=== PATIENT | male | born 1950 | race Caucasian/White ===

== ENCOUNTER 2023-07-26 11:02 | Inpatient (IN) | payer OTHER, SELFPAY ==
[2023-07-26 08:50] VITALS: BP 144/59
[2023-07-26 09:00] VITALS: BMI 24.5
[2023-07-26 09:05] LABS: Glucose - Point of Care 82 mg/dl (70-99)
--- NOTE | 2023-07-26 09:17 | ED.GENMED ---
History of Present Illness
General
Chief Complaint: Blood Sugar Problem
Source: patient, ambulance crew and long term
Exam Limitations: none
Time Seen by Provider: 07/26/23 09:01
Nursing documentation reviewed up to this point in time: agreed with
Travel History
Have you had any contact with someone who has COVID-19?: No
Do you have any symptoms of coronavirus? Fever > 100 degrees, chills, cough, shortness of breath, sore throat, loss of taste or smell, muscle aches, or headache?: No
History of Present Illness
History of Present Illness:
72-year-old male with a past medical history of hypertension, hyperlipidemia, CAD status post CABG, CHF, pacemaker/AICD, ESRD on dialysis (M/W/ schedule, last dialysis Saturday) who presents to the emergency room from [facility] for rehab for
evaluation of hypoglycemia, transient hypoxia. Patient reports that he had a recent hip surgery at [place]; apparently also had COVID and generalized weakness and he has been in rehab since these issues. He says that his sugars have been
running high and his insulin regimen was recently adjusted. I spoke with the staff at [facility]: Apparently sugars have been quite elevated in the 300s and 400s over the past few days since coming to rehab on Saturday. His insulin regimen
initially was insulin glargine 14 units nightly and insulin lispro 6 units before meals and at bedtime. This regimen was increased to insulin glargine 16 units nightly and insulin lispro 10 units with meals and at bedtime. He is not on any oral
antihyperglycemic agents. He received this new regimen last night�she received insulin glargine 16 units at 20:30 and insulin lispro 10 units at 20:30. He says that he woke up around 3 AM and felt dizzy and weak. Apparently they checked his blood
glucose and it was low. He was given crackers and juice he says and he went back to sleep. He says that he woke up later in the morning and once again was feeling dizzy like his sugar was low and apparently when I checked his blood glucose it was
in the 50s and despite giving glucagon and oral glucose they had difficulty getting glucose above 60s. EMS called. Per EMS on arrival his sugar was 55. Was given glucagon and oral glucose by EMS with improvement. There was also report of some
transient hypoxia�history is somewhat unclear EMS says that his pulse ox was in the high 80s, the nurse at rehab said that his pulse ox was in the 60s at one point. Patient says that at no point that he feels short of breath although he was very
groggy and dizzy when his sugar was low and is not a great historian for this time period. I have present moment patient says that he feels well he has no chest pain, shortness of breath does not feel nauseated has not been feeling dizzy here. He
tells me that during his recent hospitalization his oxygen level typically rested in the low 90s.
Review of Systems
Review of Systems
All Other Systems: ROS reviewed and negative except as documented in HPI and ROS
Constitutional: Denies fever or chills
Respiratory: Denies cough or trouble breathing
Cardiac: Denies chest pain
ABD/GI: Denies abdominal pain, nausea or vomiting
: Denies flank pain
Musculoskeletal: Reports edema; Denies neck pain or back pain
Neurological: Reports dizzy; Denies headache
Phy Exam
Physical Exam
Physical Exam:
General: Awake, alert; no acute distress
Head: Normocephalic, atraumatic
Eyes: Conjunctiva normal
Throat: Airway intact, handling secretions
Neck: Trachea midline, supple without meningismus
Lungs: Faint basilar rales; pulse ox 88 to 92% on room air; normal work of breathing
Heart: Regular rate and rhythm, no murmurs, gallops, or rubs; pacemaker left chest wall
Abd: Soft, non distended, nontender
Neuro: Cranial nerves grossly intact, speech fluid
Skin: no rash
Extremities: Bilateral pitting edema +2 in the lower extremities; extremities are warm well-perfused
Scores
Heart Failure Risk
Heart Failure Risk Score: Not Applicable
Heart Score for Chest Pain Patients
STEMI patient?: Not applicable
Withdrawal Assessment of Alcohol
Withdrawal Assessment Completed?: Not applicable
Course
Orders/Labs/Results
Orders:
Orders
07/26/23 09:02
Bedside Glucose- Treatment ONCE
Dextrose 50%-Water [Dextrose 50% Syringe] 12.5 grams IV NOW STA
07/26/23 09:16
CR Chest - 2 Views Urgent
Comment:
Reason For Exam: hypoxia, LE edema
07/26/23 09:21
Complete Blood Count/With Diff Urgent
Comprehensive Metabolic Panel Urgent
NT-proBNP Urgent
07/26/23 09:48
NEPHROLOGY CONSULT Urgent
Consulting Provider: Brittany Gutiérrez
Was physician already notified: Yes
07/26/23 09:58
Electrocardiogram (*1) Urgent
Reason for Study: Shortness of Breath
EKG- Treatment ONCE
Abnormal Lab Results
07/26/23
09:21
RBC 3.00 L 10^6/uL
(4.70-6.10)
Hgb 8.3 L g/dL
(13.0-18.0)
Hct 25.6 L %
(39.0-52.0)
MCHC 32.4 L g/dL
(33.0-37.0)
RDW 19.2 H %
(11.5-14.5)
Abs Immat Gran (auto) 0.1 H 10^3/uL
(0-0.05)
Absolute Neuts (auto) 7.0 H 10^3/uL
(1.4-6.5)
Absolute Lymphs (auto) 0.4 L 10^3/uL
(1.2-3.4)
Immature Gran % 0.6 H %
(0-0.5)
Neutrophils % 81.5 H %
(42.2-75.2)
Lymphocytes % 5.0 L %
(20.5-51.1)
Sodium 134 L mmol/L
(135-145)
BUN 63 H mg/dl
(9-20)
Creatinine 5.4 H* mg/dL
(0.7-1.3)
Glucose 54 L* mg/dl
(70-99)
Calcium 7.5 L mg/dl
(8.4-10.2)
ALT 74 H U/L
(0-50)
Total Protein 5.9 L g/dl
(6.3-8.2)
Albumin 2.8 L g/dl
(3.5-5.0)
07/26/23 09:21
07/26/23 09:21
Vital Signs
Initial and Last Documented VS:
Initial Vital Signs
Temp Pulse Resp BP Pulse Ox
36.5 C 60 20 144/59 88
07/26/23 08:50 07/26/23 08:50 07/26/23 08:50 07/26/23 08:50 07/26/23 08:50
Last Documented Vital Signs
Temp Pulse Resp BP Pulse Ox
36.5 C 60 20 144/59 88
07/26/23 08:50 07/26/23 08:50 07/26/23 08:50 07/26/23 08:50 07/26/23 08:50
MDM/Problems Addressed
Differential Diagnosis Includes:
Hypoglycemia�likely related to recent increase in insulin
Hypoxia�volume overload in the setting of ESRD, due for dialysis today; differential also include pneumonia, PE somewhat less likely
MDM/Problems Addressed:
72-year-old male presents to the emergency room for evaluation of hypoglycemia after increased insulin regimen as described above. Blood sugar apparently 55 for EMS he received glucagon and oral glucose. Blood glucose 75 here he was given
additional D50 to avoid further hypoglycemia. He is currently asymptomatic. Pulse ox was apparently low at long term he says that it has always been in the low 90s recently. Saturation fluctuating 88 to 92% here. Exam as above. Plan to place
an IV and check basic lab work, BNP. Will check a chest x-ray and EKG. Will monitor blood glucose closely. Suspect some mild volume overload will likely need dialysis, unfortunately he was sent in and missed outpatient dialysis.
Initial labs reviewed: CBC shows anemia at 8.3�no prior available for comparison but suspect chronic anemia in the setting of ESRD. CMP shows creatinine of 5.4 in keeping with his known renal failure; potassium acceptable at 4.5. His glucose on
BMP was 54�this was drawn prior to receiving dextrose here. Repeat Accu-Chek after receiving call back from lab showed a glucose of __. His BNP is markedly elevated at 27,000. Chest x-ray reviewed by me shows some pulmonary vascular congestion,
also question whether he could have a left lower lobe infiltrate/pneumonia. I did discuss the case with nephrology as he is due for dialysis and I suspect there is at least some element of volume overload contributing to his hypoxia but pneumonia
would certainly account for his elevated blood glucose recently and his hypoxia as well. Will plan to admit for monitoring of his blood glucose, will treat with antibiotics, arrange for dialysis. Discussed with hospitalist for admission.
Chronic conditions affecting care:
ESRD, CHF, diabetes
Acute Exacerbation and/or Progression of Chronic Illness:
Hypoglycemia treated with glucose
Acute Exacerbation and/or Progression of Chronic Illness: DM
*Radiology
Radiology exam reviewed: preliminary read by ED provider and radiology read reviewed
*Pulse Oximetry
Patient hypoxic: no
*EKG
Interpreted by ED Provider?: Yes
Comparison EKG: no comparison EKG present
Heart Rate: 60
Rate: normal
Rhythm: av sequential
*Critical Care Note
Total Time (30-74mins, 75-104mins- exclusive of procedures): Not Applicable
Data Reviewed
Source: patient, ambulance crew, long term and long term records
Patient Management
Discussion with other providers: Hospitalist (Discussed with hospitalist) and [facility] [employer] (Discussed with nephrology)
Escalation/DeEscalation of care consider admission/obs:
Admission indicated
ED Attending Note
-
Portions of this chart may have been created with voice recognition software.� Occasional wrong word or��sound alike� substitutions may have occurred due to the inherent limitations of voice recognition software.
Discharge Plan
Departure
Admit to doctor: Deandre
Presentation/result/management discussed w/ accepting MD/DO: Hospitalist
Discharge Problem:
Hypoglycemia, Pneumonia, Volume overload
Referrals:
Angelito Parker MD [Family Provider] -
Interventions
Interventions:
*Risk Screen - Suicide Last Done: 07/26/23 08:50
*General Assessment Last Done: 07/26/23 08:50
*Neglect/Abuse Screening Last Done: 07/26/23 08:50
ED- Neurological Assessment Last Done: 07/26/23 09:12
[2023-07-26] MEDS: DEXTROSE 50% SYRINGE 12.5 GRAMS IV (09:23)
[2023-07-26 09:37] LABS: % Basophils 0.5 % (0-2); % Eosinophils 5.6 % (0-6); % Immature Granulocytes 0.6 % (0-0.5); % Monocytes 6.8 % (1.7-9.3); % Neutrophils 81.5 % (42.2-75.2); Absolute Eosinophils 0.5 10^3/uL (0-0.7); Absolute Immature Granulocytes 0.1 10^3/uL (0-0.05); Absolute Lymphocytes 0.4 10^3/uL (1.2-3.4); Absolute Monocytes 0.6 10^3/uL (0.1-0.6); Hematocrit 25.6 % (39.0-52.0); Hemoglobin 8.3 g/dL (13.0-18.0); Mean Corp Hgb Conc. 32.4 g/dL (33.0-37.0); Mean Corpuscular Hgb 27.7 pg (27.0-31.0); Mean Corpuscular Volume 85.3 fL (80.0-94.0); Mean Platelet Volume 9.6 fL (7.4-10.4); Nucleated Red Blood Cells % 0 % (-); Platelet Count 205 10^3/uL (130-400); Red Cell Dist. Width 19.2 % (11.5-14.5); White Blood Cell Count 8.6 10^3/uL (4.8-10.8)
[2023-07-26 09:59] LABS: NT-proBNP > 27000 pg/ml
[2023-07-26 10:01] LABS: ALT (SGPT) 74 U/L (0-50); AST (SGOT) 39 U/L (17-59); Albumin 2.8 g/dl (3.5-5.0); Alkaline Phosphatase 105 U/L (38-126); Blood Urea Nitrogen 63 mg/dl (9-20); Calcium 7.5 mg/dl (8.4-10.2); Carbon Dioxide 30 mmol/L (22-30); Chloride 98 mmol/L (98-107); Estimated Creatinine Clearance 14 ml/min; Glucose 54 mg/dl (70-99); Potassium 4.5 mmol/L (3.5-5.1); Sodium 134 mmol/L (135-145); Total Bilirubin 0.8 mg/dl (0.2-1.3); Total Protein 5.9 g/dl (6.3-8.2); eGFR 10.57
[2023-07-26 10:07] LABS: Glucose - Point of Care 144 mg/dl (70-99)
[2023-07-26 10:10] VITALS: BP 165/70
--- NOTE | 2023-07-26 10:38 | HPS.HSE ---
Family Physician
-
Family Physician: Angelito Parker
Chief Complaint
-
Hypoglycemia
History of Present Illness
72 years old male came from senior care. Patient started to feel hypoglycemia symptoms earlier today around 4 AM. He called the nurse and took some food. He went back to sleep and woke up an hour later with the sweating and was found to have
hypoglycemia again. Patient was brought into the emergency room. He received dextrose. Admission glucose was 54.
Patient denied feeling ill the night before. No cough. No shortness of breath. He is undergoing rehab for left femur fracture. Patient reported low oral intake in the last few days but had improved recently. He used to take 24 units of
long-acting insulin around 11 AM in the morning and 6 units at night. Night dose was canceled while ago. No recent changes to his insulin dose.
Medical History
Past Medical History
Past Medical History: Reports Other (Anemia of chronic disease, osteoarthritis, coronary artery disease, systolic heart failure, diabetes, end-stage renal disease on hemodialysis, status post ICD/pacemaker, status post pancreatic and kidney
transplant. History of hypertension, hyperlipidemia, peptic ulcer, peripheral edema, peripheral)
Past Surgical History: Reports Other (Left hip replacement in July 2023)
Social History
Tobacco: Non-smoker
Alcohol: None
Drug: None
Personal:
Living: Snf
Employment: Retired
Family History
Family History: Other (Positive for diabetes, heart disease)
Allergies / Home Medications
Allergies reflects when Allergies were last updated in [facility].
Home Medications with original date entered in [facility]
Allergy/Medication List:
Allergies
Allergy/AdvReac Type Severity Reaction Status Date / Time
Cephalosporins Allergy Unknown Unknown Verified 07/26/23 09:00
clarithromycin Allergy Unknown Unknown Verified 07/26/23 09:00
Penicillins Allergy Unknown Unknown Verified 07/26/23 09:00
Home Medications
amlodipine 2.5 mg tablet 2.5 mg PO DAILY 07/26/23
aspirin 81 mg tablet,delayed release 81 mg PO DAILY 07/26/23
atorvastatin 40 mg tablet 40 mg PO HS 07/26/23
calcium acetate(phosphat bind) 667 mg tablet 667 mg PO MEALS 07/26/23
carvedilol 25 mg tablet 25 mg PO BID 07/26/23
furosemide 80 mg tablet 40 mg PO QPM 07/26/23
furosemide 80 mg tablet 80 mg PO DAILY 07/26/23
gabapentin 100 mg capsule 100 mg PO NOON 07/26/23
insulin detemir U-100 100 unit/mL (3 mL) subcutaneous pen (Levemir FlexPen) 24 unit SC DAILY@1100 07/26/23
pantoprazole 40 mg tablet,delayed release 40 mg PO DAILY 07/26/23
vitamin B complex-vitamin C-folic acid 0.8 mg tablet (Nephro-Diallo) 1 tab PO DAILY 07/26/23
Review of Systems
-
History Source: Patient
A 12 point ROS was completed and negative except as noted: Yes
Constitutional: Denies Fever
EENT: Denies Sore Throat
Respiratory: Denies Cough
Cardiac: Denies Chest Pain
Abdomen/GI: Denies Abdominal Pain
: Denies Flank Pain
Musculoskeletal: Denies Joint Pain
Skin: Denies Rash
Neurological: Denies Numbness
Endocrine: Denies Temp Intolerance
Hematologic/Lymphatic: Denies Bruising
Psych: Denies Panic Disorder
Physical Exam
Vital Signs
Vital Signs
Temp Pulse Resp BP Pulse Ox
97.7 F 55 15 165/70 96
07/26/23 08:50 07/26/23 10:10 07/26/23 10:10 07/26/23 10:10 07/26/23 10:10
Physical Exam
General: Comfortable and Appears Chronically Ill
HEENT: Moist mucous membranes and Atraumatic
Respiratory: No Wheezes or Rales
Cardiac: S1/S2
GI: Soft, Non Tender and Non Distended
Rectal: No Maroon Stools
Genito-urinary: No costovertebral tender
Musculoskeletal: No Cyanosis, Edema, Left Lower Extremity and Edema, Right Lower Extremity
Skin: Warm; No Jaundice
Neuro: AO x 3; No Slurred Speech, Facial Droop or Tremors
Psych: Calm and Intact Judgment/Insight; No Agitated
Laboratory Results
-
07/26/23 09:21
07/26/23 09:21
Laboratory Results
Total Bilirubin 0.8 mg/dl (0.2-1.3) 07/26/23 09:21
AST 39 U/L (17-59) 07/26/23 09:21
ALT 74 U/L (0-50) H 07/26/23 09:21
Alkaline Phosphatase 105 U/L (38-126) 07/26/23 09:21
Impression/Plan
-
IMPRESSION:
72 years old male admitted with hypoglycemia
#Insulin induced hypoglycemia.
Admit the patient to the hospital, continue with dextrose infusion. Hold insulin treatment. Patient has underlying kidney disease and we will adjust insulin requirement as needed. For now we will do insulin sliding scale if needed.
# Finding of left basilar opacity on chest x-ray. Patient does not have cough or shortness of breath. Doubt pneumonia. No leukocytosis. Will hold off on antibiotics and monitor
#Type 2 diabetes. Will continue with insulin sign scale once hypoglycemia resolves
# Anemia of chronic disease. Hemoglobin on admission 8.3.
# Hyponatremia. 134 sodium on admission
Mild. No confusion
#DVT prophylaxis, subcu heparin
#Chronic systolic heart failure.
Per records, echocardiogram in August 2022 showed left ventricular systolic ejection fraction 51%, inferobasal severe hypokinesis, left atrial enlargement, mild mitral regurgitation, mild aortic regurgitation.
Continue with dialysis. Home medication.
#Coronary artery disease. No chest pain.
#Peripheral vascular disease secondary to diabetes. Continue to monitor blood glucose.
#Status post biventricular ICD. No history of ICD firing. Patient denies shortness of breath.
#End-stage renal disease on hemodialysis Saturday, Saturday and Saturday.
He has a chronic bilateral ankle edema. Mild rales in lungs. He is due for dialysis today. Appreciate nephrology input
#Primary hypertension. Continue home medication and avoid hypotension.
# Status post left closed intertrochanteric fracture of the hip. Patient was in rehab post repair.
# Diabetic neuropathy. Continue with gabapentin.
Total time spent to see the patient on the floor, examine the patient, review data and lab results, discuss treatment plan with patient, ER doctor and nursing staff around 75 minutes
[2023-07-26 11:00] VITALS: BP 160/68
--- NOTE | 2023-07-26 11:03 | PHANOTE ---
07/26/2023, [employer], spoke to pt. and pt.s spouse to obtain pt.'s medication history; pt. states to be taking calcium acetate 667 mg with meals; however, I was not able to find this med. in pharmacy fill data or [facility] records. Pt. states to get
this med. mailed to them from a company in [place] but pt. does not know the name of this company.
[2023-07-26] MEDS: LEVAQUIN 150 IV (11:10)
[2023-07-26 12:33] VITALS: BP 149/87
[2023-07-26 13:04] VITALS: BMI 24.5
[2023-07-26] MEDS: HEPARIN 500 UNITS IV (13:25)
[2023-07-26 13:32] LABS: Glucose - Point of Care 70 mg/dl (70-99)
[2023-07-26 13:53] LABS: Hepatitis B Surface Antigen Negative (Negative)
[2023-07-26 14:10] LABS: Hepatitis B Surface Antibody Negative
--- NOTE | 2023-07-26 14:22 | CON.MD ---
Consultation - Medical
-
IMP:
Insulin induced hypoglycemia.
?PNA
ESRD MWF - [facility], failed tranplant 2018
h/o KP TXP at [place] in 1997, HD for 2yrs prior
Type 2 diabetes
Anemia of chronic disease.
Hyponatremia
Chronic systolic heart failure.
Per records, echocardiogram in August 2022 showed left ventricular systolic ejection fraction 51%, inferobasal severe hypokinesis, left atrial enlargement, mild mitral regurgitation, mild aortic regurgitation.
Coronary artery disease
Peripheral vascular disease secondary to diabetes
Status post biventricular ICD
Primary hypertension
Status post left closed intertrochanteric fracture of the hip s/p ORIF
Diabetic neuropathy
Hyperphosphatemia
Rt UE AVF
h/o recent COVID
PLan:
A/w iatrogenic hypoglycemia
arrange for HD today
hemodynamically stable
anemia-high dose CHATO -no previous records
resume home meds -lasix , phos binders
reports labile BGs with hypoglycemic episodes before
monitor edema of left arm
[id number]
[2023-07-26] MEDS: EPOGEN 10000 UNITS IV (14:45)
[2023-07-26 15:35] VITALS: BP 154/62
[2023-07-26 16:59] LABS: Glucose - Point of Care 217 mg/dl (70-99)
[2023-07-26] MEDS: LIPITOR 40 MG PO (17:22)
--- NOTE | 2023-07-26 17:30 | W.PN.NEPH.HD ---
Assessment
-
pt seen during HD
vitals stable
UF as tolerates, has edema
AVF functions well
next HD on Saturday
Progress Note - Hemodialysis
-
Date of Service: July 26, 2023
Duration: 30 minutes and 3 hours
Potassium Bath: 2
Calcium Bath: 2.5
Opti-Dialyzer: 160
Ultrafiltration: Other (2.5-3kg)
Blood Flow: 400
Dialysate Flow: 600
Heparin: yesx2
EPO: [id number]
--- NOTE | 2023-07-26 17:38 | PTCARENOTE ---
Pt's blood sugar now 217. Calling for dinner. No insulin ordered as pt was previously hypoglycemic. Dr Pereira notified. No new orders.
[2023-07-26] MEDS: COREG 25 MG PO (21:03)
[2023-07-26] MEDS: HEPARIN 5000 UNITS SC (21:04)
[2023-07-26 21:35] LABS: Glucose - Point of Care 249 mg/dl (70-99)
[2023-07-26 23:24] VITALS: BP 130/52
[2023-07-27 05:29] VITALS: BMI 22.6
[2023-07-27 07:26] LABS: Iron 28 ug/dl (49-181)
[2023-07-27 07:35] LABS: Percent Saturation 19 % (20-50); Total Iron Binding Capacity 143 ug/dl (261-462)
[2023-07-27 07:45] VITALS: BP 167/77
[2023-07-27 07:58] LABS: Glucose - Point of Care 294 mg/dl (70-99)
[2023-07-27 09:00] VITALS: BP 164/71; PULSE 65; O2SAT 97
[2023-07-27 09:17] VITALS: BP 166/71; PULSE 65; O2SAT 97
[2023-07-27] MEDS: LOW STRENGTH ASPIRIN 81 MG PO (09:17)
[2023-07-27] MEDS: NORVASC 2.5 MG PO (09:17)
[2023-07-27] MEDS: PROTONIX 40 MG PO (09:17)
[2023-07-27] MEDS: LASIX 80 MG PO (09:17)
[2023-07-27] MEDS: COREG 25 MG PO ×2 (09:18→20:49)
[2023-07-27] MEDS: HEPARIN 5000 UNITS SC ×2 (09:18→20:49)
[2023-07-27] MEDS: NEURONTIN 100 MG PO (09:18)
--- NOTE | 2023-07-27 10:13 | W.PN.HOSP.TC ---
Today's Communication/Plan
-
likely dc in am
Assessment / Plan
Assessment / Plan
Physical Exam
General: Comfortable and Appears Chronically Ill
HEENT: Moist mucous membranes and Atraumatic
Respiratory: No Wheezes or Rales
Cardiac: S1/S2
GI: Soft, Non Tender and Non Distended
Rectal: No Maroon Stools
Genito-urinary: No costovertebral tender
Musculoskeletal: No Cyanosis, Edema, Left Lower Extremity and Edema, Right Lower Extremity
Skin: Warm; No Jaundice
Neuro: AO x 3; No Slurred Speech, Facial Droop or Tremors
Psych: Calm and Intact Judgment/Insight; No Agitated
72 years old male admitted with hypoglycemia
#Insulin induced hypoglycemia.
Seems to resolve
Currently his BS readings are on high side around 200, we can start insulin sliding scale
# Finding of left basilar opacity on chest x-ray.� Patient does not have cough or shortness of breath. He was not ill when he started to have hypoglycemia symptoms and denied chocking. � Doubt pneumonia.� No leukocytosis.� Will hold off on
antibiotics and monitor.
#Type 2 diabetes.� Will continue with insulin sign scale since hypoglycemia resolved.
# Anemia of chronic disease.� Hemoglobin on admission 8.3.
Low iron
Will do IV Iron
# Hyponatremia.� 134 sodium on admission
Mild.� No confusion
#DVT prophylaxis, subcu heparin
#Chronic systolic heart failure.
Per records, echocardiogram in August 2022 showed left ventricular systolic ejection fraction 51%, inferobasal severe hypokinesis, left atrial enlargement, mild mitral regurgitation, mild aortic regurgitation.
Continue with dialysis.� Home medication.
#Coronary artery disease.� No chest pain.
#Peripheral vascular disease secondary to diabetes.� Continue to monitor blood glucose.
#Status post biventricular ICD.� No history of ICD firing.� Patient denies shortness of breath.
#End-stage renal disease on hemodialysis Saturday, Saturday and Saturday.
He has a chronic bilateral ankle edema.� Mild rales in lungs.� He is due for dialysis today.� Appreciate nephrology input
#Primary hypertension.� Continue home medication and avoid hypotension.
# Status post left closed intertrochanteric fracture of the hip.� Patient was in rehab post repair.
# Diabetic neuropathy.� Continue with gabapentin.
Total time spent to see the patient on the floor, examine the patient, review data and lab results, discuss treatment plan with patient, and nursing staff around 55 minutes
Anticipated Discharge: Within 24 hours
Subjective/Interval History
-
Date of Service: July 27, 2023
No chest pain
No sob
No abd pain
Objective Data
-
Vital Signs:
Vital Signs
Temp Pulse Resp BP Pulse Ox
98.0 F 62 18 167/77 100
07/27/23 07:45 07/27/23 07:45 07/27/23 07:45 07/27/23 07:45 07/27/23 07:45
I&O
07/26/23 07/27/23 07/28/23
06:59 06:59 06:59
Intake Total 840 / 840
Balance 840 / 840
--- NOTE | 2023-07-27 10:30 | W.PN.NEPH.PH ---
Today's Communication / Plan
-
HD on Saturday
Assessment/Plan
-
IMP:
Insulin induced hypoglycemia.
?PNA
ESRD MWF - [facility], failed tranplant 2018
h/o KP TXP at [place] in 1997, HD for 2yrs prior
Type 2 diabetes
Anemia of chronic disease.
Hyponatremia
Chronic systolic heart failure.
Per records, echocardiogram in August 2022 showed left ventricular systolic ejection fraction 51%, inferobasal severe hypokinesis, left atrial enlargement, mild mitral regurgitation, mild aortic regurgitation.
Coronary artery disease
Peripheral vascular disease secondary to diabetes
Status post biventricular ICD
Primary hypertension
Status post left closed intertrochanteric fracture of the hip s/p ORIF
Diabetic neuropathy
Hyperphosphatemia
Rt UE AVF
h/o recent COVID
PLan:
A/w iatrogenic hypoglycemia
hemodynamically stable
anemia-fe def, CHATO and Iv Fe with next HD
cont lasix , phos binders
reports labile BGs with hypoglycemic episodes before
monitor edema of left arm with h/o DVT
Pt does not want to return gian muhammad -will need CM to review with him
d/w nursing
-
-
Date of Service: July 27, 2023
CC / HPI / ROS
-
Chief Complaint:
ESRD
History of Present Illness:
no labs today
tolerated HD on 07/26, wt is down
Bp stable
Review of Systems:
no cp or sob
no fever
left UE edema no change
off O2
Labs
-
Labs:
WBC 8.6 10^3/uL (4.8-10.8) 07/26/23 09:21
RBC 3.00 10^6/uL (4.70-6.10) L 07/26/23 09:21
Hgb 8.3 g/dL (13.0-18.0) L 07/26/23 09:21
Hct 25.6 % (39.0-52.0) L 07/26/23 09:21
Plt Count 205 10^3/uL (130-400) 07/26/23 09:21
Sodium 134 mmol/L (135-145) L 07/26/23 09:21
Potassium 4.5 mmol/L (3.5-5.1) 07/26/23 09:21
Chloride 98 mmol/L (98-107) 07/26/23 09:21
Carbon Dioxide 30 mmol/L (22-30) 07/26/23 09:21
BUN 63 mg/dl (9-20) H 07/26/23 09:21
Creatinine 5.4 mg/dL (0.7-1.3) H* 07/26/23 09:21
eGFR 10.57 07/26/23 09:21
Glucose 54 mg/dl (70-99) L* 07/26/23 09:21
Calcium 7.5 mg/dl (8.4-10.2) L 07/26/23 09:21
Ifz-M-Qdckzosezrj Pept > 91453 pg/ml 07/26/23 09:21
Albumin 2.8 g/dl (3.5-5.0) L 07/26/23 09:21
Physical Exam
-
Vital Signs:
Vital Signs
Temp Pulse Resp BP Pulse Ox
98.0 F 62 18 167/77 100
07/27/23 07:45 07/27/23 07:45 07/27/23 07:45 07/27/23 07:45 07/27/23 07:45
Cardiovascular:: Regular rate and rhythm
Respiratory:: Bilateral: CTA
Lung Excursion:: Normal
Abdomen:: Nontender and Soft
Extremity Edema:: +1: Bilateral:
Avila Catheter: No
[2023-07-27 11:40] LABS: Glucose - Point of Care 432 mg/dl (70-99)
--- NOTE | 2023-07-27 12:01 | CM ---
Addendum entered by Ashley Campos RN 07/27/23 15:26:
Patient requested referrals be sent closer to his home. Referrals with [facility] sent.
Addendum entered by Ashley Campos RN 07/27/23 15:19:
Patient has Medicare A & B and supplement Plan G through [facility] policy # [id number]. Unable to have changed in system due to admissions is closed for weekend.
Original Note:
Reviewed the chart notes and spoke with the patient at the bedside. The patient was recently discharged from [facility] to [facility]. The patient prior to SNF resides with his spouse in a two story home with two steps to enter.
The patient has had VN in the past, but could not recall the name of the agency. The patient has a rolling walker, cane, and a shower chair. The patient receives HD M-W-F. Per patient, his insurance has changed. Patient will attempt to obtain
current insurance information so billing can be updated. CM continues to be available to patient/family and is monitoring medical plan for needs at discharge.
Plan: Discharge to SNF/rehab once medically stable. PT recommending SNF/rehab.
[2023-07-27 12:34] LABS: Glucose 443 mg/dl (70-99)
[2023-07-27] MEDS: NOVOLOG FLEXPEN 10 UNITS SC (12:38)
[2023-07-27] MEDS: NOVOLOG FLEXPEN-LOW RESISTANCE 6 UNITS SC (12:38)
--- NOTE | 2023-07-27 12:57 | PTCARENOTE ---
Notified by PCT that POC glucose resulted as 'HI' at 1138, stat venous glucose was ordered and Dr. Pereira made aware; Venous glucose results reported to Dr. Pereira; Additional insulin coverage ordered; See MAR for further details
[2023-07-27] MEDS: FERRLECIT 110 MG IV (13:09)
[2023-07-27 13:58] LABS: Glucose - Point of Care 433 mg/dl (70-99)
[2023-07-27] MEDS: LANTUS 0.100000000000000006 UNITS SC (14:44)
[2023-07-27] MEDS: NOVOLOG vial 7 UNITS SC (14:48)
[2023-07-27 14:54] LABS: Glucose 423 mg/dl (70-99)
[2023-07-27 16:07] VITALS: BP 146/62
[2023-07-27 16:14] LABS: Glucose - Point of Care 403 mg/dl (70-99)
--- NOTE | 2023-07-27 16:22 | PTCARENOTE ---
Patient continues with POC glucose readings resulting as 'HI', stat venous glucose ordered per protocol, Dr. Pereira made aware of continued high readings, insulin given per order - see MAR for further details
[2023-07-27] MEDS: LIPITOR 40 MG PO (17:00)
[2023-07-27 17:13] LABS: Glucose 353 mg/dl (70-99)
[2023-07-27] MEDS: NOVOLOG FLEXPEN-LOW RESISTANCE 5 UNITS SC (17:18)
[2023-07-27 18:29] LABS: Glucose - Point of Care 301 mg/dl (70-99)
[2023-07-27 19:50] LABS: Glucose - Point of Care 244 mg/dl (70-99)
[2023-07-27 20:50] VITALS: BP 155/68
[2023-07-27 22:12] LABS: Glucose - Point of Care 161 mg/dl (70-99)
[2023-07-27 23:30] VITALS: BP 159/67
[2023-07-28 03:39] LABS: Glucose - Point of Care 160 mg/dl (70-99)
--- NOTE | 2023-07-28 05:01 | PTCARENOTE ---
POC glucose readings resulting 160
[2023-07-28 05:22] VITALS: BMI 22.8
[2023-07-28 07:25] VITALS: BP 162/74
[2023-07-28 07:55] LABS: Glucose - Point of Care 119 mg/dl (70-99)
[2023-07-28] MEDS: NOVOLOG FLEXPEN-LOW RESISTANCE SC ×2 (08:03→13:21)
[2023-07-28] MEDS: HEPARIN 5000 UNITS SC ×2 (08:07→20:42)
[2023-07-28] MEDS: COREG 25 MG PO ×2 (08:07→20:42)
[2023-07-28] MEDS: LOW STRENGTH ASPIRIN 81 MG PO (08:08)
[2023-07-28] MEDS: PROTONIX 40 MG PO (08:08)
[2023-07-28] MEDS: LASIX 80 MG PO (08:09)
[2023-07-28] MEDS: NEURONTIN 100 MG PO (08:09)
[2023-07-28] MEDS: NORVASC 2.5 MG PO (08:09)
[2023-07-28] MEDS: LANTUS 0.100000000000000006 UNITS SC (08:09)
--- NOTE | 2023-07-28 10:10 | W.PN.NEPH.PH ---
Today's Communication / Plan
-
HD tomorrow
Assessment/Plan
-
IMP:
Insulin induced hypoglycemia.
?PNA
ESRD MWF - [facility], failed tranplant 2018
h/o KP TXP at [facility] in 1997, HD for 2yrs prior
Type 2 diabetes
Anemia of chronic disease.
Hyponatremia
Chronic systolic heart failure.
Per records, echocardiogram in August 2022 showed left ventricular systolic ejection fraction 51%, inferobasal severe hypokinesis, left atrial enlargement, mild mitral regurgitation, mild aortic regurgitation.
Coronary artery disease
Peripheral vascular disease secondary to diabetes
Status post biventricular ICD
Primary hypertension
Status post left closed intertrochanteric fracture of the hip s/p ORIF
Diabetic neuropathy
Hyperphosphatemia
Rt UE AVF
h/o recent COVID
PLan:
A/w iatrogenic hypoglycemia
hemodynamically stable
anemia-fe def, CHATO and Iv Fe with next HD
cont lasix , phos binders
reports labile BGs with hypoglycemic episodes before, hyperglycemic now
Pt does not want to return [facility] -will need CM to review placement close to home
HD tomorrow
-
-
Date of Service: July 28, 2023
CC / HPI / ROS
-
Chief Complaint:
ESRD
History of Present Illness:
no labs today , BG are high
tolerated HD on 07/26, wt is down
Bp stable
Review of Systems:
no cp or sob
no fever
off O2
Labs
-
Labs:
WBC 8.6 10^3/uL (4.8-10.8) 07/26/23 09:21
RBC 3.00 10^6/uL (4.70-6.10) L 07/26/23 09:21
Hgb 8.3 g/dL (13.0-18.0) L 07/26/23 09:21
Hct 25.6 % (39.0-52.0) L 07/26/23 09:21
Plt Count 205 10^3/uL (130-400) 07/26/23 09:21
Sodium 134 mmol/L (135-145) L 07/26/23 09:21
Potassium 4.5 mmol/L (3.5-5.1) 07/26/23 09:21
Chloride 98 mmol/L (98-107) 07/26/23 09:21
Carbon Dioxide 30 mmol/L (22-30) 07/26/23 09:21
BUN 63 mg/dl (9-20) H 07/26/23 09:21
Creatinine 5.4 mg/dL (0.7-1.3) H* 07/26/23 09:21
eGFR 10.57 07/26/23 09:21
Glucose 353 mg/dl (70-99) H 07/27/23 16:48
Calcium 7.5 mg/dl (8.4-10.2) L 07/26/23 09:21
Rot-X-Zpbyzonpbnh Pept > 09285 pg/ml 07/26/23 09:21
Albumin 2.8 g/dl (3.5-5.0) L 07/26/23 09:21
Physical Exam
-
Vital Signs:
Vital Signs
Temp Pulse Resp BP Pulse Ox
98.0 F 62 18 162/74 95
07/28/23 07:25 07/28/23 08:09 07/28/23 07:25 07/28/23 08:09 07/28/23 08:00
Cardiovascular:: Regular rate and rhythm
Respiratory:: Bilateral: CTA (decreased)
Lung Excursion:: Normal
Abdomen:: Nontender and Soft
Extremity Edema:: +1: Bilateral: (left>right)
Avila Catheter: No
[2023-07-28 11:40] LABS: Glucose - Point of Care 170 mg/dl (70-99)
--- NOTE | 2023-07-28 13:28 | W.PN.HOSP.TC ---
Today's Communication/Plan
-
IV iron
Continue with PT/OT
Assessment / Plan
Assessment / Plan
Physical Exam
General: Comfortable and Appears Chronically Ill
HEENT: Moist mucous membranes and Atraumatic
Respiratory: No Wheezes or Rales
Cardiac: S1/S2
GI: Soft, Non Tender and Non Distended
Rectal: No Maroon Stools
Genito-urinary: No costovertebral tender
Musculoskeletal: No Cyanosis, Edema, Left Lower Extremity and Edema, Right Lower Extremity
Skin: Warm; No Jaundice
Neuro: AO x 3; No Slurred Speech, Facial Droop or Tremors
Psych: Calm and Intact Judgment/Insight; No Agitated
72 years old male admitted with hypoglycemia
#Insulin induced hypoglycemia.
Resolved.
With ongoing renal dysfunction, advised to avoid high doses of insulin.
# Finding of left basilar opacity on chest x-ray.� Patient does not have cough or shortness of breath. He was not ill when he started to have hypoglycemia symptoms and denied chocking. � Doubt pneumonia.� No leukocytosis.� Will hold off on
antibiotics and monitor.
#Type 2 diabetes.� Hypoglycemia resolved now. Patient started to have elevated blood glucose level. He was maintained on insulin/scale with adjustment for then as needed. Added low-dose Lantus today.
# Anemia of chronic disease.� Hemoglobin on admission 8.3.
Low iron
Started on intravenous iron
# Hyponatremia.� 134 sodium on admission
Mild.� No confusion
#DVT prophylaxis, subcu heparin
#Chronic systolic heart failure.
Per records, echocardiogram in August 2022 showed left ventricular systolic ejection fraction 51%, inferobasal severe hypokinesis, left atrial enlargement, mild mitral regurgitation, mild aortic regurgitation.
Continue with dialysis.� Home medication.
#Coronary artery disease.� No chest pain.
#Peripheral vascular disease secondary to diabetes.� Continue to monitor blood glucose.
#Status post biventricular ICD.� No history of ICD firing.� Patient denies shortness of breath.
#End-stage renal disease on hemodialysis Saturday, Saturday and Saturday. Plan for hemodialysis tomorrow.
He has a chronic bilateral ankle edema.� Mild rales in lungs.� No hypotension reported during dialysis..� Appreciate nephrology input
#Primary hypertension.� Continue home medication and avoid hypotension.
# Status post left closed intertrochanteric fracture of the hip.� Patient was in rehab post repair.
# Diabetic neuropathy.� Continue with gabapentin.
# Discharge plan. Patient does not want to go to the same assisted facility. He wants to go to a place close to his home in [place].
Total time spent to see the patient on the floor, examine the patient, review data and lab results, discuss treatment plan with patient, and nursing staff around 55 minutes
Anticipated Discharge: Within 24 hours
Subjective/Interval History
-
Date of Service: July 28, 2023
Objective Data
-
Vital Signs:
Vital Signs
Temp Pulse Resp BP Pulse Ox
98.0 F 62 18 162/74 95
07/28/23 07:25 07/28/23 08:09 07/28/23 07:25 07/28/23 08:09 07/28/23 08:00
I&O
07/27/23 07/28/23 07/29/23
06:59 06:59 06:59
Intake Total 840 / 840 1190 / 1190
Balance 840 / 840 1190 / 1190
[2023-07-28] MEDS: FLUSH (NSS) 2 FLUSH IV (14:06)
[2023-07-28] MEDS: FERRLECIT 110 MG IV (14:06)
[2023-07-28 15:56] VITALS: BP 167/66
[2023-07-28 16:57] LABS: Glucose - Point of Care 269 mg/dl (70-99)
[2023-07-28] MEDS: NOVOLOG FLEXPEN-LOW RESISTANCE 3 UNITS SC (17:20)
[2023-07-28] MEDS: LIPITOR 40 MG PO (17:21)
[2023-07-28 21:34] LABS: Glucose - Point of Care 349 mg/dl (70-99)
[2023-07-28 22:37] VITALS: BP 150/65
[2023-07-29 02:18] LABS: Glucose - Point of Care 262 mg/dl (70-99)
[2023-07-29 06:00] VITALS: BMI 23.5
[2023-07-29 06:41] LABS: Hematocrit 24.8 % (39.0-52.0); Mean Corp Hgb Conc. 32.3 g/dL (33.0-37.0); Mean Corpuscular Hgb 27.6 pg (27.0-31.0); Mean Corpuscular Volume 85.5 fL (80.0-94.0); Platelet Count 196 10^3/uL (130-400); Red Cell Dist. Width 19.5 % (11.5-14.5); White Blood Cell Count 4.5 10^3/uL (4.8-10.8)
[2023-07-29 07:18] LABS: ALT (SGPT) 42 U/L (0-50); AST (SGOT) 26 U/L (17-59); Albumin 2.6 g/dl (3.5-5.0); Alkaline Phosphatase 119 U/L (38-126); Blood Urea Nitrogen 63 mg/dl (9-20); Calcium 7.3 mg/dl (8.4-10.2); Carbon Dioxide 30 mmol/L (22-30); Chloride 94 mmol/L (98-107); Estimated Creatinine Clearance 11 ml/min; Glucose 204 mg/dl (70-99); Potassium 4.5 mmol/L (3.5-5.1); Sodium 130 mmol/L (135-145); Total Bilirubin 0.7 mg/dl (0.2-1.3); Total Protein 5.5 g/dl (6.3-8.2); eGFR 8.31
[2023-07-29] MEDS: EPOGEN 10000 UNITS IV (07:48)
[2023-07-29] MEDS: HEPARIN 500 UNITS IV ×2 (07:49→09:37)
[2023-07-29 08:25] VITALS: BP 174/81
--- NOTE | 2023-07-29 08:54 | PN.DE.MGMTRT ---
Insulin Management
- -
07/29/2023: Diabetes Management Consult.
72 year old male admitted 07/25 with hypoglycemia- glucose was 54 on admission. PMH includes: CAD, Systolic HF, ESRD on HD, HTN, HLD, AOCD, Osteoarthritis, s/p ICD/pacemaker, s/p pancreatic and kidney transplant, peptic ulcer, peripheral edema.
Per chart review, pt used to take 24 units of long-acting insulin around 11 AM in the morning and 6 units in PM. His night time dose was discontinued a while back and there has been no recent changes to his insulin dose.
Pt reports that he is still taking Levemir 24 units @11am after HD on dialysis/non-HD days and that his diabetes is managed by his Nephrology team.
He is currently receiving HD. States he ate a small breakfast at 7am. His diabetes regimen includes: Low corrective insulin and Lantus 10 units @ 11am.
Glucose was 269 at dinner time yesterday, trended up to 349 @HS. 2am glucose was 262, was 160 on 07/28. Only received 10 units of Lantus in the morning and 3 units of corrective insulin yesterday, its noted that he refused his lunch time corrective
dose.
Will increase Lantus to 15 units in am, 1st dose at 11am today. Cont low corrective with meals. Discussed with pt and Nurse.
Diabetes History
- -
Type of Diabetes: 2 requiring insulin
Pre-Admission Diabetes Regimen
07/29/23
05:20
Creatinine 6.6 H*
Insulin Pump Settings
IP Diabetes Regimen
07/28/23 07/28/23 07/28/23
11:37 16:55 21:32
Glucose
POC Glucose 170 H 269 H 349 H
07/29/23 07/29/23
02:17 05:20
Glucose 204 H
POC Glucose 262 H
Meal type: Dinner
Meal type: Breakfast
Amount consumed: 85%
Amount consumed: 100%
Patient Education
[2023-07-29 09:52] LABS: Glucose - Point of Care 181 mg/dl (70-99)
[2023-07-29 09:54] LABS: Glycohemoglobin (HgbA1c) 8.5 % (4.0-5.6)
[2023-07-29] MEDS: NOVOLOG FLEXPEN-LOW RESISTANCE SC ×2 (10:07→11:54)
--- NOTE | 2023-07-29 11:23 | W.PN.HOSP.TC ---
Today's Communication/Plan
-
HD today
trend hgb
Await placement
monitor POC
Assessment / Plan
Assessment / Plan
72 years old male admitted with hypoglycemia
#Insulin induced hypoglycemia.
#Type 2 diabetes.�
Resolved.
iss and low dose lantus added.
POC am 181
DM [employer] c/s
# Finding of left basilar opacity on chest x-ray.� Patient does not have cough or shortness of breath. He was not ill when he started to have hypoglycemia symptoms and denied chocking. � Doubt pneumonia.� No leukocytosis.� Will hold off on
antibiotics and monitor.
# Anemia of chronic disease.�
Low iron
Started on intravenous iron
No long luminal bleeding noted
Trend for now. transfuse prn <7.
# Hyponatremia.� 134 sodium on admission
Mild.� No confusion
#Chronic systolic heart failure.
Per records, echocardiogram in August 2022 showed left ventricular systolic ejection fraction 51%, inferobasal severe hypokinesis, left atrial enlargement, mild mitral regurgitation, mild aortic regurgitation.
Continue with dialysis.� Home medication.
#Coronary artery disease.� No chest pain.
#Peripheral vascular disease secondary to diabetes.� Continue to monitor blood glucose.
#Status post biventricular ICD.� No history of ICD firing.� Patient denies shortness of breath.
#End-stage renal disease on hemodialysis Saturday, Saturday and Saturday-undergoing HD now.
#Primary hypertension.� Continue home medication and avoid hypotension.
# Status post left closed intertrochanteric fracture of the hip.� Patient was in rehab post repair.
# Diabetic neuropathy.� Continue with gabapentin.
# Discharge plan. Patient does not want to go to the same long-term facility. He wants to go to a place close to his home in [place].
#DVT prophylaxis, subcu heparin
PT/OT-SNF. CM aware.
Anticipated Discharge: 24 - 48 hours
Subjective/Interval History
-
Date of Service: July 29, 2023
seen on HD.
tolerating diet
no more hypoglycemia episodes
Objective Data
-
Labs:
Laboratory Results
07/29/23
05:20
WBC 4.5 L
Hgb 8.0 L
Hct 24.8 L
Plt Count 196
Sodium 130 L
Potassium 4.5
Chloride 94 L
Carbon Dioxide 30
BUN 63 H
Creatinine 6.6 H*
Glucose 204 H
Calcium 7.3 L
Total Bilirubin 0.7
AST 26
ALT 42
Alkaline Phosphatase 119
Vital Signs:
Vital Signs
Temp Pulse Resp BP Pulse Ox
97.6 F 61 18 174/81 95
07/29/23 08:25 07/29/23 08:25 07/29/23 08:25 07/29/23 08:25 07/29/23 08:25
I&O
07/28/23 07/29/23 07/30/23
06:59 06:59 06:59
Intake Total 1190 / 1190 960 / 960
Balance 1190 / 1190 960 / 960
Physical Exam
-
General: Well Developed and No Apparent Distress
HEENT: Normocephalic, Atraumatic and Moist Mucous Membranes
Respiratory: Clear to Auscultation
Cardiac: Regular Rhythm and S1/S2; Negative Murmur, Rub or Gallop
GI: Soft, Nontender, Nondistended and Normal Bowel Sounds; Negative Organomegaly
Rectal: Deferred by Provider
Musculoskeletal: No Clubbing, No Cyanosis and No Edema
Skin: Negative Rash
Neuro: Awake and Nonfocal/Grossly Intact
Psych: Calm
Data Reviewed
-
Total Time Spent with Patient (in minutes): 54
[2023-07-29] MEDS: LASIX 80 MG PO (11:30)
[2023-07-29] MEDS: PROTONIX 40 MG PO (11:30)
[2023-07-29] MEDS: COREG 25 MG PO ×2 (11:30→21:21)
[2023-07-29] MEDS: NORVASC 2.5 MG PO (11:30)
[2023-07-29] MEDS: NEURONTIN 100 MG PO (11:30)
[2023-07-29] MEDS: LOW STRENGTH ASPIRIN 81 MG PO (11:30)
[2023-07-29] MEDS: LANTUS 0.149999999999999994 UNITS SC (11:31)
[2023-07-29] MEDS: HEPARIN 5000 UNITS SC ×2 (11:31→21:23)
[2023-07-29] MEDS: LANTUS SC (11:39)
[2023-07-29 11:53] LABS: Glucose - Point of Care 137 mg/dl (70-99)
--- NOTE | 2023-07-29 11:53 | W.PN.NEPH.HD ---
Assessment
-
Seen on HD. no complaints. VSS, access ok sugars good
await placement
Progress Note - Hemodialysis
-
Date of Service: July 29, 2023
Duration: 30 minutes and 3 hours
Potassium Bath: 2
Calcium Bath: 2.5
Opti-Dialyzer: 160
Ultrafiltration: Other (2kg)
Blood Flow: 400
Dialysate Flow: 600
Heparin: 500x2
EPO: 11713
[2023-07-29] MEDS: FERRLECIT 110 MG IV (14:02)
[2023-07-29] MEDS: FLUSH (NSS) 2 FLUSH IV (14:02)
[2023-07-29 14:48] VITALS: BP 166/71; PULSE 65; O2SAT 97
[2023-07-29 15:05] VITALS: BP 168/74
[2023-07-29 16:39] LABS: Glucose - Point of Care 199 mg/dl (70-99)
--- NOTE | 2023-07-29 16:45 | CM ---
Chart reviewed. Spoke with pt
Does not wish to return to [place]
Facility accepting requesting chair time for HD at [facility]
Pt reports he attended facility in [place]
CM will follow up in AM
[2023-07-29] MEDS: NOVOLOG FLEXPEN-LOW RESISTANCE 1 UNITS SC (16:52)
[2023-07-29] MEDS: LIPITOR 40 MG PO (16:55)
[2023-07-29 21:22] LABS: Glucose - Point of Care 221 mg/dl (70-99)
[2023-07-29 23:26] VITALS: BP 155/65
[2023-07-30 05:49] VITALS: BMI 23.0
[2023-07-30 06:29] LABS: Glucose - Point of Care 57 mg/dl (70-99)
[2023-07-30 06:55] LABS: Glucose - Point of Care 65 mg/dl (70-99)
[2023-07-30 07:36] VITALS: BP 166/70
[2023-07-30 08:59] LABS: Glucose - Point of Care 115 mg/dl (70-99)
[2023-07-30] MEDS: NOVOLOG FLEXPEN-LOW RESISTANCE SC (09:08)
[2023-07-30] MEDS: COREG 25 MG PO ×2 (09:09→21:38)
[2023-07-30] MEDS: NORVASC 2.5 MG PO (09:09)
[2023-07-30] MEDS: NEURONTIN 100 MG PO (09:09)
[2023-07-30] MEDS: LASIX 80 MG PO (09:09)
[2023-07-30] MEDS: LOW STRENGTH ASPIRIN 81 MG PO (09:10)
[2023-07-30] MEDS: HEPARIN 5000 UNITS SC ×2 (09:10→21:38)
[2023-07-30] MEDS: PROTONIX 40 MG PO (09:10)
--- NOTE | 2023-07-30 10:11 | CM ---
Addendum entered by Ethel Mckeon 07/30/23 14:14:
Spoke with Tierney at [facility] [phone]
Reports pts chair time at is too early for facility to transport pt - she will call [facility] to see if time can be changed temporarily while pt is at facility.
Tierney will call back with info
Pt will need auth
Original Note:
Called [facility] [phone]
Spoke with Cheo
Confirmed pt is pt, has chair MWF [id number] - would need to be at facility [id number]
will discuss with pt and accepting facility to verify transport plan
--- NOTE | 2023-07-30 10:27 | PN.DE.MGMTRT ---
Insulin Management
- -
07/29/2023: Diabetes Management Consult.
72 year old male admitted 07/25 with hypoglycemia- glucose was 54 on admission. PMH includes: CAD, Systolic HF, ESRD on HD, HTN, HLD, AOCD, Osteoarthritis, s/p ICD/pacemaker, s/p pancreatic and kidney transplant, peptic ulcer, peripheral edema.
Per chart review, pt used to take 24 units of long-acting insulin around 11 AM in the morning and 6 units in PM. His night time dose was discontinued a while back and there has been no recent changes to his insulin dose.
Pt reports that he is still taking Levemir 24 units @11am after HD on dialysis/non-HD days and that his diabetes is managed by his Nephrology team.
He is currently receiving HD. States he ate a small breakfast at 7am. His diabetes regimen includes: Low corrective insulin and Lantus 10 units @ 11am.
Glucose was 269 at dinner time yesterday, trended up to 349 @HS. 2am glucose was 262, was 160 on 07/28. Only received 10 units of Lantus in the morning and 3 units of corrective insulin yesterday, its noted that he refused his lunch time corrective
dose.
Will increase Lantus to 15 units in am, 1st dose at 11am today. Cont low corrective with meals. Discussed with pt and Nurse.
07/30/2023 Diabetes Management Follow Up
Lantus dose increased yesterday to 15, glucose trended down overnight to 57 this AM. Spoke to patient, he had a full dinner. Glucose @ HS 221. Will decrease lantus to 12 units. Encouraged patient to order a bedtime snack when he orders dinner.
Will follow.
Diabetes History
- -
Type of Diabetes: 2 requiring insulin
Pre-Admission Diabetes Regimen
Lab Results
Hemoglobin A1c 8.5 % (4.0-5.6) H 07/29/23 05:20
Insulin Pump Settings
IP Diabetes Regimen
07/29/23 07/29/23 07/29/23
11:47 16:37 21:15
POC Glucose 137 H 199 H 221 H
07/30/23 07/30/23 07/30/23
06:27 06:53 08:58
POC Glucose 57 L 65 L 115 H
Meal type: Dinner
Meal type: Breakfast
Amount consumed: 85%
Amount consumed: 100%
Patient Education
--- NOTE | 2023-07-30 11:20 | W.PN.NEPH.PH ---
Today's Communication / Plan
-
placement
Assessment/Plan
-
IMP:
Insulin induced hypoglycemia.
?PNA
ESRD MWF - [facility], failed tranplant 2018
h/o KP TXP at [place] in 1997, HD for 2yrs prior
Type 2 diabetes
Anemia of chronic disease.
Hyponatremia
Chronic systolic heart failure.
Per records, echocardiogram in August 2022 showed left ventricular systolic ejection fraction 51%, inferobasal severe hypokinesis, left atrial enlargement, mild mitral regurgitation, mild aortic regurgitation.
Coronary artery disease
Peripheral vascular disease secondary to diabetes
Status post biventricular ICD
Primary hypertension
Status post left closed intertrochanteric fracture of the hip s/p ORIF
Diabetic neuropathy
Hyperphosphatemia
Rt UE AVF
h/o recent COVID
PLan:
-HD tomorrow
-OP HD planning
-
-
Date of Service: July 30, 2023
CC / HPI / ROS
-
Chief Complaint:
ESRD
History of Present Illness:
sugars stable
tolerated HD yesterdat
BP stable
Review of Systems:
no cp or sob
no fever
off O2
Labs
-
Labs:
WBC 4.5 10^3/uL (4.8-10.8) L 07/29/23 05:20
RBC 2.90 10^6/uL (4.70-6.10) L 07/29/23 05:20
Hgb 8.0 g/dL (13.0-18.0) L 07/29/23 05:20
Hct 24.8 % (39.0-52.0) L 07/29/23 05:20
Plt Count 196 10^3/uL (130-400) 07/29/23 05:20
Sodium 130 mmol/L (135-145) L 07/29/23 05:20
Potassium 4.5 mmol/L (3.5-5.1) 07/29/23 05:20
Chloride 94 mmol/L (98-107) L 07/29/23 05:20
Carbon Dioxide 30 mmol/L (22-30) 07/29/23 05:20
BUN 63 mg/dl (9-20) H 07/29/23 05:20
Creatinine 6.6 mg/dL (0.7-1.3) H* 07/29/23 05:20
eGFR 8.31 07/29/23 05:20
Glucose 204 mg/dl (70-99) H 07/29/23 05:20
Calcium 7.3 mg/dl (8.4-10.2) L 07/29/23 05:20
Agd-M-Huaodubcidz Pept > 23506 pg/ml 07/26/23 09:21
Albumin 2.6 g/dl (3.5-5.0) L 07/29/23 05:20
Physical Exam
-
Vital Signs:
Vital Signs
Temp Pulse Resp BP Pulse Ox
97.3 F 64 17 166/70 98
07/30/23 07:36 07/30/23 07:36 07/30/23 07:36 07/30/23 07:36 07/30/23 07:36
Cardiovascular:: Regular rate and rhythm
Respiratory:: Bilateral: Coarse
Lung Excursion:: Normal
Abdomen:: Nontender and Soft
Bowel Sounds:: Normal
Extremity Edema:: None: Bilateral:
--- NOTE | 2023-07-30 11:38 | W.PN.HOSP.TC ---
Today's Communication/Plan
-
monitor POC
monitor BP
HD tomm
Check labs in am
await placement
Assessment / Plan
Assessment / Plan
72 years old male admitted with hypoglycemia
#Insulin induced hypoglycemia.
#Type 2 diabetes.�
Resolved.
iss and low dose lantus added. Lantus dose decreased to 12u
POC 57-->65-->115
a1c 8.5
DM RN MOBILE c/s
# Finding of left basilar opacity on chest x-ray.� Patient does not have cough or shortness of breath. He was not ill when he started to have hypoglycemia symptoms and denied chocking. � Doubt pneumonia.� No leukocytosis.� Will hold off on
antibiotics and monitor.
# Anemia of chronic disease.�
Low iron
Started on intravenous iron
No long luminal bleeding noted
Trend for now. transfuse prn <7.
# Hyponatremia.� 134 sodium on admission
Mild.� No confusion
#Chronic systolic heart failure.
Per records, echocardiogram in August 2022 showed left ventricular systolic ejection fraction 51%, inferobasal severe hypokinesis, left atrial enlargement, mild mitral regurgitation, mild aortic regurgitation.
Continue with dialysis.� Home medication.
#Coronary artery disease.� No chest pain.
#Peripheral vascular disease secondary to diabetes.� Continue to monitor blood glucose.
#Status post biventricular ICD.� No history of ICD firing.� Patient denies shortness of breath.
#End-stage renal disease on hemodialysis Saturday, Saturday and Saturday-Hd tomm.
#Primary hypertension.� Continue home medication and avoid hypotension. Cont norvasc, coreg and lasix.
# Status post left closed intertrochanteric fracture of the hip.� Patient was in rehab post repair.
# Diabetic neuropathy.� Continue with gabapentin.
# Dispo-await placement to SNF. CM aware.
#DVT prophylaxis, subcu heparin
PT/OT-SNF. CM aware.
Anticipated Discharge: Within 24 hours
Subjective/Interval History
-
Date of Service: July 30, 2023
mild hypoglycemic earlier
eating chocolates
Objective Data
-
Vital Signs:
Vital Signs
Temp Pulse Resp BP Pulse Ox
97.3 F 64 17 166/70 98
07/30/23 07:36 07/30/23 07:36 07/30/23 07:36 07/30/23 07:36 07/30/23 07:36
I&O
07/29/23 07/30/23 07/31/23
06:59 06:59 06:59
Intake Total 960 / 960 830 / 830
Balance 960 / 960 830 / 830
Physical Exam
-
General: Well Developed and No Apparent Distress
HEENT: Normocephalic, Atraumatic and Moist Mucous Membranes
Respiratory: Clear to Auscultation
Cardiac: Regular Rhythm and S1/S2; Negative Murmur, Rub or Gallop
GI: Soft, Nontender, Nondistended and Normal Bowel Sounds; Negative Organomegaly
Rectal: Deferred by Provider
Musculoskeletal: No Clubbing, No Cyanosis and No Edema
Skin: Negative Rash
Neuro: Awake and Nonfocal/Grossly Intact
Psych: Calm
[2023-07-30 12:06] LABS: Glucose - Point of Care 152 mg/dl (70-99)
[2023-07-30] MEDS: LANTUS 0.119999999999999996 UNITS SC (12:50)
[2023-07-30] MEDS: NOVOLOG FLEXPEN-LOW RESISTANCE 1 UNITS SC ×2 (12:50→18:51)
[2023-07-30] MEDS: FERRLECIT 110 MG IV (12:54)
[2023-07-30 15:04] VITALS: BP 155/66; PULSE 61
[2023-07-30 15:13] VITALS: BP 166/70
--- NOTE | 2023-07-30 15:22 | PN.CDI ---
CDI
- -
CDI:
Physician Documentation Request
Admit Date: 07/26/23 11:02
Dear Doctor Taj,
Clinical Indicators:
Patient admitted with Insulin induced hypoglycemia.
07/26 H & P, ' 'Chronic systolic heart failure...Mild rales in lungs'
07/26 Nephrology consult, 'Volume status seemed to be mild hypervolemia. UF as tolerates.'
SaO2 on admission:
07/26/23
08:50
SaO2 88
BNP on admission:
07/26/23
09:21
Rxr-U-Hkuvbkxvber Pept > [id number]
Please clarify the most likely acuity of CHF you are evaluating, treating or monitoring.
Acute on chronic systolic heart failure
Chronic systolic heart failure only
Other, please specify
Use of terms such as suspected, likely, concern for, or probable (associated with a specific diagnosis that is being evaluated, monitored, or treated as if it exists) are acceptable and can be coded in the inpatient setting, when documented at the
time of discharge.
Thank you,
RICKEY Moya RN
CDI Specialist
available via tiger text
Please use your independent medical judgment in providing your response.
[2023-07-30 17:13] LABS: Glucose - Point of Care 157 mg/dl (70-99)
[2023-07-30] MEDS: LIPITOR 40 MG PO (18:51)
[2023-07-30 21:57] LABS: Glucose - Point of Care 151 mg/dl (70-99)
[2023-07-30 23:00] VITALS: BP 159/67
[2023-07-31 02:49] LABS: Glucose - Point of Care 110 mg/dl (70-99)
[2023-07-31 05:43] VITALS: BMI 22.4
[2023-07-31 07:16] LABS: Glucose - Point of Care 81 mg/dl (70-99)
[2023-07-31] MEDS: NOVOLOG FLEXPEN-LOW RESISTANCE SC ×4 (07:30→17:30)
--- NOTE | 2023-07-31 07:41 | PN.DE.MGMTRT ---
Insulin Management
- -
07/29/2023: Diabetes Management Consult.
72 year old male admitted 07/25 with hypoglycemia- glucose was 54 on admission. PMH includes: CAD, Systolic HF, ESRD on HD, HTN, HLD, AOCD, Osteoarthritis, s/p ICD/pacemaker, s/p pancreatic and kidney transplant, peptic ulcer, peripheral edema.
Per chart review, pt used to take 24 units of long-acting insulin around 11 AM in the morning and 6 units in PM. His night time dose was discontinued a while back and there has been no recent changes to his insulin dose.
Pt reports that he is still taking Levemir 24 units @11am after HD on dialysis/non-HD days and that his diabetes is managed by his Nephrology team.
He is currently receiving HD. States he ate a small breakfast at 7am. His diabetes regimen includes: Low corrective insulin and Lantus 10 units @ 11am.
Glucose was 269 at dinner time yesterday, trended up to 349 @HS. 2am glucose was 262, was 160 on 07/28. Only received 10 units of Lantus in the morning and 3 units of corrective insulin yesterday, its noted that he refused his lunch time corrective
dose.
Will increase Lantus to 15 units in am, 1st dose at 11am today. Cont low corrective with meals. Discussed with pt and Nurse.
07/30/2023 Diabetes Management Follow Up
Lantus dose increased yesterday to 15, glucose trended down overnight to 57 this AM. Spoke to patient, he had a full dinner. Glucose @ HS 221. Will decrease lantus to 12 units. Encouraged patient to order a bedtime snack when he orders dinner.
Will follow.
07/31/2023 Diabetes Management Follow up
Lantus dose decreased to 12 units @ 11AM. HS glucose 151, 2AM glucose 110, fasting this AM 81. Will make no change to lantus dose today. Pre meal glucose stable with low corrective insulin only. Will follow.
Diabetes History
- -
Type of Diabetes: 2 requiring insulin
Pre-Admission Diabetes Regimen
Lab Results
Hemoglobin A1c 8.5 % (4.0-5.6) H 07/29/23 05:20
Insulin Pump Settings
IP Diabetes Regimen
07/30/23 07/30/23 07/30/23
08:58 12:05 17:12
POC Glucose 115 H 152 H 157 H
07/30/23 07/31/23 07/31/23
21:55 02:48 07:15
POC Glucose 151 H 110 H 81
Amount consumed: 100%
Patient Education
[2023-07-31 07:59] VITALS: BP 167/71
[2023-07-31] MEDS: HEPARIN SC (08:00)
[2023-07-31] MEDS: HEPARIN 500 UNITS IV ×2 (08:05→09:05)
[2023-07-31 08:21] LABS: % Basophils 0.7 % (0-2); % Eosinophils 7.2 % (0-6); % Immature Granulocytes 0.2 % (0-0.5); % Monocytes 9.8 % (1.7-9.3); % Neutrophils 69.1 % (42.2-75.2); Absolute Eosinophils 0.3 10^3/uL (0-0.7); Absolute Lymphocytes 0.6 10^3/uL (1.2-3.4); Absolute Monocytes 0.4 10^3/uL (0.1-0.6); Absolute Neutrophils 3.1 10^3/uL (1.4-6.5); Hematocrit 24.7 % (39.0-52.0); Mean Corp Hgb Conc. 32.4 g/dL (33.0-37.0); Mean Corpuscular Hgb 28.4 pg (27.0-31.0); Mean Corpuscular Volume 87.6 fL (80.0-94.0); Mean Platelet Volume 10.4 fL (7.4-10.4); Nucleated Red Blood Cells % 0 % (-); Platelet Count 176 10^3/uL (130-400); Red Blood Cell Count 2.82 10^6/uL (4.70-6.10); Red Cell Dist. Width 19.9 % (11.5-14.5); White Blood Cell Count 4.5 10^3/uL (4.8-10.8)
[2023-07-31 08:40] LABS: Blood Urea Nitrogen 47 mg/dl (9-20); Calcium 7.5 mg/dl (8.4-10.2); Carbon Dioxide 27 mmol/L (22-30); Chloride 96 mmol/L (98-107); Estimated Creatinine Clearance 12 ml/min; Glucose 124 mg/dl (70-99); Potassium 4.7 mmol/L (3.5-5.1); Sodium 129 mmol/L (135-145); eGFR 8.95
[2023-07-31] MEDS: EPOGEN 10000 UNITS IV (08:43)
--- NOTE | 2023-07-31 09:45 | W.PN.NEPH.HD ---
Assessment
-
pt seen during HD
vitals stable
UF as tolerates
AVF functions well
penidng placement
Progress Note - Hemodialysis
-
Date of Service: July 31, 2023
Duration: 30 minutes and 3 hours
Potassium Bath: 2
Calcium Bath: 2.5
Opti-Dialyzer: 160
Ultrafiltration: Other (2.5-3kg)
Blood Flow: 400
Dialysate Flow: 600
Heparin: yesx2
EPO: [id number]
[2023-07-31 11:05] LABS: Glucose - Point of Care 116 mg/dl (70-99)
--- NOTE | 2023-07-31 11:06 | W.PN.HOSP.TC ---
Addendum entered and electronically signed by Rios Vang MD 07/31/23 13:27:
acute on chronic HFrEF
Original Note:
Today's Communication/Plan
-
await placement
HD today
monitor poc
epo per nephro
iv iron
Assessment / Plan
Assessment / Plan
72 years old male admitted with hypoglycemia
#Insulin induced hypoglycemia.
#Type 2 diabetes.�
Resolved.
iss and low dose lantus added. Lantus dose decreased to 12u
POC 81
a1c 8.5
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
# Finding of left basilar opacity on chest x-ray.� Patient does not have cough or shortness of breath. He was not ill when he started to have hypoglycemia symptoms and denied chocking. � Doubt pneumonia.� No leukocytosis.� Will hold off on
antibiotics and monitor.
# Anemia of chronic disease.�
Low iron
Started on intravenous iron
No long luminal bleeding noted
Trend for now. transfuse prn <7.
# Hyponatremia.� 134 sodium on admission
Mild.� No confusion
#Chronic systolic heart failure.
Per records, echocardiogram in August 2022 showed left ventricular systolic ejection fraction 51%, inferobasal severe hypokinesis, left atrial enlargement, mild mitral regurgitation, mild aortic regurgitation.
Continue with dialysis.� Home medication.
#Coronary artery disease.� No chest pain.
#Peripheral vascular disease secondary to diabetes.� Continue to monitor blood glucose.
#Status post biventricular ICD.� No history of ICD firing.� Patient denies shortness of breath.
#End-stage renal disease on hemodialysis Saturday, Saturday and Saturday-Hd tomm.
#Primary hypertension.� Continue home medication and avoid hypotension. Cont norvasc, coreg and lasix.
# Status post left closed intertrochanteric fracture of the hip.� Patient was in rehab post repair.
# Diabetic neuropathy.� Continue with gabapentin.
# Dispo-await placement to SNF. CM aware.
#DVT prophylaxis, subcu heparin
PT/OT-SNF. CM aware.
Anticipated Discharge: Today
Subjective/Interval History
-
Date of Service: July 31, 2023
seen on HD
poc stable this am
Objective Data
-
Labs:
Laboratory Results
07/31/23
07:44
WBC 4.5 L
Hgb 8.0 L
Hct 24.7 L
Plt Count 176
Sodium 129 L
Potassium 4.7
Chloride 96 L
Carbon Dioxide 27
BUN 47 H
Creatinine 6.2 H*
Glucose 124 H
Calcium 7.5 L
Vital Signs:
Vital Signs
Temp Pulse Resp BP Pulse Ox
97.6 F 65 18 167/71 98
07/31/23 07:59 07/31/23 07:59 07/31/23 07:59 07/31/23 07:59 07/31/23 07:59
I&O
07/30/23 07/31/23 08/01/23
06:59 06:59 06:59
Intake Total 830 / 830 1080 / 1080
Balance 830 / 830 1080 / 1080
Physical Exam
-
General: Well Developed and No Apparent Distress
HEENT: Normocephalic, Atraumatic and Moist Mucous Membranes
Respiratory: Clear to Auscultation
Cardiac: Regular Rhythm and S1/S2; Negative Murmur, Rub or Gallop
GI: Soft, Nontender, Nondistended and Normal Bowel Sounds; Negative Organomegaly
Rectal: Deferred by Provider
Musculoskeletal: No Clubbing, No Cyanosis and No Edema
Skin: Negative Rash
Neuro: Awake and Nonfocal/Grossly Intact
Psych: Calm
[2023-07-31] MEDS: FERRLECIT 110 MG IV (11:08)
[2023-07-31] MEDS: COREG 25 MG PO ×2 (12:07→20:39)
[2023-07-31] MEDS: PROTONIX 40 MG PO (12:07)
[2023-07-31] MEDS: LASIX 80 MG PO (12:07)
[2023-07-31] MEDS: NORVASC 2.5 MG PO (12:07)
[2023-07-31] MEDS: LOW STRENGTH ASPIRIN 81 MG PO (12:07)
[2023-07-31] MEDS: NEURONTIN 100 MG PO (12:07)
[2023-07-31] MEDS: LANTUS 0.119999999999999996 UNITS SC (12:08)
[2023-07-31 15:23] VITALS: BP 151/57
--- NOTE | 2023-07-31 16:58 | CM ---
Chart reviewed - spoke with pt at bedside
Spoke with Tierney and Clarified (Francine Garciaor) [phone] pt will have transportation to HD
Attempted to obtain auth for snf - per [facility] pt insurance will today 07/31
Pt does have medicare A & B, with [employer] as supplemental
Called and left message with Tierney at facility regarding acceptance of insurance - waiting application systems engineer back
Plan - d/c to snf - pending clarification of facility acceptance of insurance
[2023-07-31 17:09] LABS: Glucose - Point of Care 225 mg/dl (70-99)
[2023-07-31] MEDS: LIPITOR 40 MG PO (17:26)
[2023-07-31] MEDS: HEPARIN 5000 UNITS SC (20:39)
[2023-07-31 21:17] LABS: Glucose - Point of Care 268 mg/dl (70-99)
[2023-07-31 23:15] VITALS: BP 144/51
[2023-08-01] MEDS: LIDOCAINE 4% PATCH 1 PATCH TOPICAL (00:26)
[2023-08-01 04:18] LABS: Glucose - Point of Care 165 mg/dl (70-99)
[2023-08-01 07:20] VITALS: BP 159/65
--- NOTE | 2023-08-01 07:25 | PN.DE.MGMTRT ---
Insulin Management
- -
07/29/2023: Diabetes Management Consult.
72 year old male admitted 07/25 with hypoglycemia- glucose was 54 on admission. PMH includes: CAD, Systolic HF, ESRD on HD, HTN, HLD, AOCD, Osteoarthritis, s/p ICD/pacemaker, s/p pancreatic and kidney transplant, peptic ulcer, peripheral edema.
Per chart review, pt used to take 24 units of long-acting insulin around 11 AM in the morning and 6 units in PM. His night time dose was discontinued a while back and there has been no recent changes to his insulin dose.
Pt reports that he is still taking Levemir 24 units @11am after HD on dialysis/non-HD days and that his diabetes is managed by his Nephrology team.
He is currently receiving HD. States he ate a small breakfast at 7am. His diabetes regimen includes: Low corrective insulin and Lantus 10 units @ 11am.
Glucose was 269 at dinner time yesterday, trended up to 349 @HS. 2am glucose was 262, was 160 on 07/28. Only received 10 units of Lantus in the morning and 3 units of corrective insulin yesterday, its noted that he refused his lunch time corrective
dose.
Will increase Lantus to 15 units in am, 1st dose at 11am today. Cont low corrective with meals. Discussed with pt and Nurse.
07/30/2023 Diabetes Management Follow Up
Lantus dose increased yesterday to 15, glucose trended down overnight to 57 this AM. Spoke to patient, he had a full dinner. Glucose @ HS 221. Will decrease lantus to 12 units. Encouraged patient to order a bedtime snack when he orders dinner.
Will follow.
07/31/2023 Diabetes Management Follow up
Lantus dose decreased to 12 units @ 11AM. HS glucose 151, 2AM glucose 110, fasting this AM 81. Will make no change to lantus dose today. Pre meal glucose stable with low corrective insulin only. Will follow.
08/01/2023 Diabetes Management Follow up
Patient received 12 units lantus two consecutive days glucose had been stable requiring 1 unit of corrective insulin. Pre dinner glucose up to 225, patient refused corrective insulin, HS glucose 268. Will increase AM Lantus to 13 units.
Diabetes History
- -
Type of Diabetes: 2
Pre-Admission Diabetes Regimen
07/31/23
07:44
Creatinine 6.2 H*
Lab Results
Hemoglobin A1c 8.5 % (4.0-5.6) H 07/29/23 05:20
Insulin Pump Settings
IP Diabetes Regimen
07/31/23 07/31/23 07/31/23
07:44 11:04 17:08
Glucose 124 H
POC Glucose 116 H 225 H
07/31/23 08/01/23
21:16 04:18
Glucose
POC Glucose 268 H 165 H
Amount consumed: 100%
Patient Education
[2023-08-01 08:00] VITALS: BMI 22.6
[2023-08-01 08:25] LABS: Glucose - Point of Care 171 mg/dl (70-99)
[2023-08-01] MEDS: LANTUS 0.160000000000000003 UNITS SC (08:52)
[2023-08-01] MEDS: HEPARIN 5000 UNITS SC (08:53)
[2023-08-01] MEDS: PROTONIX 40 MG PO (08:53)
[2023-08-01] MEDS: NEURONTIN 100 MG PO (08:53)
[2023-08-01] MEDS: COREG 25 MG PO (08:53)
[2023-08-01] MEDS: NORVASC 2.5 MG PO (08:53)
[2023-08-01] MEDS: LASIX 80 MG PO (08:53)
[2023-08-01] MEDS: LOW STRENGTH ASPIRIN 81 MG PO (08:53)
[2023-08-01] MEDS: NOVOLOG FLEXPEN-LOW RESISTANCE 1 UNITS SC ×3 (08:54→17:34)
--- NOTE | 2023-08-01 09:33 | W.PN.NEPH.PH ---
Today's Communication / Plan
-
HD tomorrow if still here
Assessment/Plan
-
IMP:
Insulin induced hypoglycemia.
?PNA
ESRD MWF - [facility], failed tranplant 2018
h/o KP TXP at [facility] in 1997, HD for 2yrs prior
Type 2 diabetes
Anemia of chronic disease.
Hyponatremia
Chronic systolic heart failure.
Per records, echocardiogram in August 2022 showed left ventricular systolic ejection fraction 51%, inferobasal severe hypokinesis, left atrial enlargement, mild mitral regurgitation, mild aortic regurgitation.
Coronary artery disease
Peripheral vascular disease secondary to diabetes
Status post biventricular ICD
Primary hypertension
Status post left closed intertrochanteric fracture of the hip s/p ORIF
Diabetic neuropathy
Hyperphosphatemia
Rt UE AVF
h/o recent COVID
PLan:
-HD tomorrow
BP are high increase amlodipine
try more UF with next HD
-OP HD planning
-
-
Date of Service: August 01, 2023
CC / HPI / ROS
-
Chief Complaint:
ESRD
History of Present Illness:
sugars stable
tolerated HD yesterdat
BP high
Review of Systems:
no cp or sob
no fever
Labs
-
Labs:
WBC 4.5 10^3/uL (4.8-10.8) L 07/31/23 07:44
RBC 2.82 10^6/uL (4.70-6.10) L 07/31/23 07:44
Hgb 8.0 g/dL (13.0-18.0) L 07/31/23 07:44
Hct 24.7 % (39.0-52.0) L 07/31/23 07:44
Plt Count 176 10^3/uL (130-400) 07/31/23 07:44
Sodium 129 mmol/L (135-145) L 07/31/23 07:44
Potassium 4.7 mmol/L (3.5-5.1) 07/31/23 07:44
Chloride 96 mmol/L (98-107) L 07/31/23 07:44
Carbon Dioxide 27 mmol/L (22-30) 07/31/23 07:44
BUN 47 mg/dl (9-20) H 07/31/23 07:44
Creatinine 6.2 mg/dL (0.7-1.3) H* 07/31/23 07:44
eGFR 8.95 07/31/23 07:44
Glucose 124 mg/dl (70-99) H 07/31/23 07:44
Calcium 7.5 mg/dl (8.4-10.2) L 07/31/23 07:44
Dqt-O-Ephmceryqyq Pept > 66281 pg/ml 07/26/23 09:21
Albumin 2.6 g/dl (3.5-5.0) L 07/29/23 05:20
Physical Exam
-
Vital Signs:
Vital Signs
Temp Pulse Resp BP Pulse Ox
98.1 F 65 18 159/65 99
08/01/23 07:20 08/01/23 07:20 08/01/23 07:20 08/01/23 07:20 08/01/23 07:20
Cardiovascular:: Regular rate and rhythm
Respiratory:: Bilateral: CTA
Lung Excursion:: Normal
Abdomen:: Nontender and Soft
Extremity Edema:: +1: Bilateral:
Avila Catheter: No
[2023-08-01 10:16] VITALS: BP 178/71
[2023-08-01 10:23] VITALS: BP 178/71
[2023-08-01 11:00] VITALS: BMI 22.6
[2023-08-01 11:25] LABS: Glucose - Point of Care 194 mg/dl (70-99)
--- NOTE | 2023-08-01 11:37 | W.PN.HOSP.TC ---
Today's Communication/Plan
-
await placement
increase lantus
hd tomm if here
labs in am
Assessment / Plan
Assessment / Plan
72 years old male admitted with hypoglycemia
#Insulin induced hypoglycemia.
#Type 2 diabetes.�
Resolved.
iss and low dose lantus added. Lantus dose decreased to 13u
POC 171
a1c 8.5
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
# Finding of left basilar opacity on chest x-ray.� Patient does not have cough or shortness of breath. He was not ill when he started to have hypoglycemia symptoms and denied chocking. � Doubt pneumonia.� No leukocytosis.� Will hold off on
antibiotics and monitor.
# Anemia of chronic disease.�
Low iron
Started on intravenous iron
No long luminal bleeding noted
Trend for now. transfuse prn <7.
# Hyponatremia likely chronic in the setting of ESRD
Sodium correction with Hemodialysis
#Acute on Chronic systolic heart failure.
Per records, echocardiogram in August 2022 showed left ventricular systolic ejection fraction 51%, inferobasal severe hypokinesis, left atrial enlargement, mild mitral regurgitation, mild aortic regurgitation.
Continue with dialysis.� Cont with GDMT. Continue aspirin, statin, carvedilol and Lasix.
#Coronary artery disease.� No chest pain.
#Peripheral vascular disease secondary to diabetes.�
#Status post biventricular ICD.� No history of ICD firing.� Patient denies shortness of breath.
#End-stage renal disease on hemodialysis Saturday, Saturday and Saturday-Hd tomm if here.
#Primary hypertension.� Continue home medication and avoid hypotension. Cont norvasc, coreg and lasix.
# Status post left closed intertrochanteric fracture of the hip.� Patient was in rehab post repair.
# Diabetic neuropathy.� Continue with gabapentin.
# Dispo-await placement to SNF. CM aware.
#DVT prophylaxis, subcu heparin
PT/OT-SNF. CM aware.
Anticipated Discharge: Today
Subjective/Interval History
-
Date of Service: August 01, 2023
resting in chair comfortably
no hypoglycemic episodes
Objective Data
-
Vital Signs:
Vital Signs
Temp Pulse Resp BP Pulse Ox
98.1 F 65 18 159/65 99
08/01/23 07:20 08/01/23 07:20 08/01/23 07:20 08/01/23 07:20 08/01/23 07:20
I&O
07/31/23 08/01/23 08/02/23
06:59 06:59 06:59
Intake Total 1080 / 1080 480 / 480
Balance 1080 / 1080 480 / 480
Physical Exam
-
General: Well Developed and No Apparent Distress
HEENT: Normocephalic, Atraumatic and Moist Mucous Membranes
Respiratory: Clear to Auscultation
Cardiac: Regular Rhythm and S1/S2; Negative Murmur, Rub or Gallop
GI: Soft, Nontender, Nondistended and Normal Bowel Sounds; Negative Organomegaly
Rectal: Deferred by Provider
Musculoskeletal: No Clubbing, No Cyanosis, No Edema, Edema, Left Upper Extrem (chronic ) and Edema, Right Lower Extrem (chronic )
Skin: Negative Rash
Neuro: Awake, AO x 3, No Motor Deficits and Nonfocal/Grossly Intact
Psych: Calm
--- NOTE | 2023-08-01 13:16 | W.DCSUMMARY ---
Discharge Summary
Discharge Data
Date of Admission: 07/26/23
Date of Discharge: 08/01/23
-
Pending Results: No
Hospital Course
72-year-old male past medical history of diabetes mellitus on insulin, anemia of chronic disease, hyponatremia, chronic systolic heart failure, CAD, peripheral vascular disease, biventricular ICD, ESRD on hemodialysis, hypertension, diabetic
neuropathy who is presenting with [facility] with hypoglycemia. Patient insulin was adjusted. Patient with labile diabetes and required multiple adjustment of long-acting Lantus. Patient blood glucose stabilized. Patient was eval by nephrology
patient for regular scheduled hemodialysis. Norvasc was increased for elevated blood pressure. Patient was eval by physical and Occupational Therapy. Patient with infiltrate on chest x-ray however patient negative for cough fever or leukocytosis
and antibiotics were not started. Patient remains afebrile and stable. Patient with low iron stores and received IV iron. Patient be discharged to intermediate facility.
Discharge Plan
-
Patient Disposition: Custodial/SNF
Discharge Diagnosis/Procedures: Diabetes mellitus type 2 with hyperglycemia
Anemia of chronic disease
Acute on chronic systolic heart failure
Condition: Fair
Diet: 2 Gram Sodium, Diabetic, Carb Controlled and Restrict fluids to 48 oz
Activity: With assistance and As tolerated
Driving Restrictions: Not until seen by your Dr
Referrals:
Angelito Parker MD [Family Provider] - in less than 1 week
Prescriptions:
Continued
atorvastatin 40 mg Tablet
40 mg PO HS
carvedilol 25 mg Tablet
25 mg PO BID
calcium acetate(phosphat bind) 667 mg Tablet
667 mg PO MEALS
Patient Comments:
07/26/2023, pt. states to be taking this med.; however, I could not find in [facility] records and pt.'s pharmacy ([facility] in [place] on [address]) made no mention of this med. Pt. states to get this med. sent to them from a company is [employer] but they
do not know the name of it.
aspirin 81 mg Tablet,Delayed Release (Dr/Ec)
81 mg PO DAILY
furosemide 80 mg Tablet
80 mg PO DAILY
furosemide 80 mg Tablet
40 mg PO QPM
pantoprazole 40 mg Tablet,Delayed Release (Dr/Ec)
40 mg PO DAILY
Nephro-Diallo 0.8 mg Tablet
1 tab PO DAILY
gabapentin 100 mg Capsule
100 mg PO NOON
Changed
amlodipine 2.5 mg Tablet
5 mg PO DAILY Qty: 0 0RF
Levemir FlexPen 100 unit/mL (3 mL) Insulin Pen
16 unit SC DAILY Qty: 0 0RF
Discharge Orders:
Discharge Patient (As Directed); Ordered 08/01/23
Ordered By: Rios Vang
--- NOTE | 2023-08-01 13:25 | CM ---
Patient has been medically cleared for discharge to [facility] for rehab and skilled services. Transport being scheduled with [facility]. Nurse to nurse report # is [phone] and Fax # is [phone]. Patient, , team and [facility]
admissions notified. IMM signed.
[2023-08-01 15:15] VITALS: BP 150/65
[2023-08-01 16:47] LABS: Glucose - Point of Care 161 mg/dl (70-99)
[2023-08-01] MEDS: LIPITOR 40 MG PO (17:35)
== END 2023-08-01 19:22 | DRG 291 ==
LOC: 2 SOUTH 11:02
PROVIDERS: Specialist; ADMITTING PHYSICIAN Internal Medicine; ATTENDING PHYSICIAN Hospitalist; CONSULT PHYSICIAN Internal Medicine; EMERGENCY PHYSICIAN Emergency Medicine; FAMILY PHYSICIAN Internal Medicine
PROC: 5A1D70Z Performance of Urinary Filtration, Intermittent, Less than 6 Hours Per Day (ICD-10-PCS; 2023-07-26)
DX: I13.2 Hypertensive heart and chronic kidney disease with heart failure and with stage 5 chronic kidney disease, or end stage renal disease (principal); I50.23 Acute on chronic systolic (congestive) heart failure; J18.9 Pneumonia, unspecified organism; N18.6 End stage renal disease; E87.1 Hypo-osmolality and hyponatremia; Z94.0 Kidney transplant status; Z94.83 Pancreas transplant status; E11.65 Type 2 diabetes mellitus with hyperglycemia; E11.40 Type 2 diabetes mellitus with diabetic neuropathy, unspecified; E11.649 Type 2 diabetes mellitus with hypoglycemia without coma; D63.1 Anemia in chronic kidney disease; E11.51 Type 2 diabetes mellitus with diabetic peripheral angiopathy without gangrene; I25.10 Atherosclerotic heart disease of native coronary artery without angina pectoris; Z99.2 Dependence on renal dialysis; E11.22 Type 2 diabetes mellitus with diabetic chronic kidney disease; E83.39 Other disorders of phosphorus metabolism; I73.9 Peripheral vascular disease, unspecified
CPT/HCPCS: 71046; 80048; 80053; 82728; 82947; 82962; 83036; 83540; 83550; 83880; 85025; 85027; 86706; 87070; 87340; 93005; 96365; 96375; 97116; 97162; 97166; 97530; 99285; G0257; J0885; J2916; P9047